=== PATIENT | female | born 1960 | race Caucasian/White ===

== ENCOUNTER → 2016-06-18 | Outpatient (CLI) | payer BC ==
--- NOTE | 2016-06-19 06:04 | PAP/PSG TECHNICIAN REPORT ---
[facility] [place] Polysomnogram Report Study name: None Report date: 06/19/2016 Study date: 06/18/2016 Referring Physician: Glenny GRULLON M.D. Name: ESA ANGELO Interpreting Physician: Lauren Grullon M.D. Date of : 1960 [place]: Annette Acosta RPSGT. Sex: Female Age: 56 Study Type: PSG PAP Weight: 173 lbs 16 in Height: 56 years, Height 4' 11" Neck Circum: BMI: 34.94 Medications: LOSARTAN 50 MG, VALTREX 500 MG, HYDROCHLOROTHIAZIDE 25 MG, SUMATRIPTAN 25 MG, MONTELUKAST 10 MG, OMNARIS 50 MCG/ACT, VIT B-12, VIT D3 1000 UNIT, BENADRYL 25 MG Patient History 56 yr-old female here for a CPAP treatment update study. She has been using CPAP since 2012. She wears it every night but recently was trying to switch to another nasal mask due to hers not fitting correctly. Tonight she is wearing a Mirage FX Soft edge nasal mask size standard from [facility]. Her Rogers scale is 2. The test was started on room air. ETCO2 testing was not utilized during this study. Room 1 Parameters Monitored NPSG: E1-M2, E2-M1, Fp1-M2, Fp2-M1, F3-M2, F4-M2, F4-M1, C3-M2, C4-M2, C4-M1, O1-M2, O2-M2, O2-M1, T3-M2, T4-M1, P3-M2, P4-M1, CHIN1, CHIN2, HR, EKG, Legs, PFLOW, SNOR, FLOW, CFLOW, Tidal Volume, THOR, ABDO, SpO2, PLTH, CPRESS, ETCO2 Wave, ETCO2, pH Sleep Architecture Sleep Stages Time at Lights Off 10:15:33 PM STAGES Time (min.) TST (%) Time at Lights On 5:18:03 AM Wake 31.0 -- Total Recording Time (TRT) 422.50 min. N1 26.0 7 Total Sleep Period (TSP) 408.5 min. N2 244.0 62 Total Sleep Time (TST) 391.5min. N3 21.0 5 Awake Time 31.0 min. REM 100.5 26 Wake after Sleep Onset 28.0 min. Sleep Efficiency (SE) 93 % Sleep Onset Latency (CHET) 3.0 min. Number of Stage 1 Shifts None Awakenings 15 Stage Changes 81 Number of REM periods 4 REM 100.5 26 REM Latency 75.5 min. NREM 291.0 74 Body Position Analysis Supine Right Left Side Prone Vertical Total Sleep Time (min.) 65.8 125.9 219.8 345.67 0.0 0.0 Total Sleep Time (%) 12% 32% 56% 88 0% N/A% Total Sleep Time REM (min.) 0.0 27.0 73.5 None 0.0 0.0 Total Sleep Time NREM (min.) 45.8 98.9 146.3 None 0.0 0.0 Intermittent Wake (min.) 20.0 7.7 3.3 None 0.0 0.0 Total Sleep Period (%) 13% None None None None None Arousals Myoclonus (PLM) * Events Count Index Events Count Index Spontaneous 11 2 Events Awake (PLMW) 46 89.0 Respiratory 10 1.5 Events Asleep w/ Arousal (PLMA) 20 3.1 PLM 20 3 Events Asleep w/o Arousal (PLMS) 283 43.4 Snoring 5 1 Total Asleep 303 46.4 Total 46 7 Total 349 50 Respiratory Analysis * CA OA MA CH H RERA Total Count 1 1 1 0 6 10 9 Index 0.2 0.2 0.2 0 0.9 2 2.9 Mean Duration 11.8 18.2 15.1 0.00 17.3 16.1 16.3 Longest Duration 11.8 18.2 15.1 0.00 15.1 18.3 21.3 Respiratory Event Summary Total Supine ~Supine Right Left Prone REM NREM Apneas Count 3 0 3 1 2 N/A 1 2 Index 0.5 0 1 0.5 0.5 N/A 1 0 Hypopneas (4% Desat) Count 6 1 5 4 1 N/A 0 6 Index 0.9 1.3 1 1.9 0.3 N/A 0.0 1.2 Apneas & All Hypopneas Count 9 1 8 5 3 N/A 1 8 Index 1.4 1 1 2 1 N/A 0.6 1.6 Respiratory Events (Care Asst+All Hyp+RERA) Count 9 3 16 5 11 N/A 1 8 Index 2.9 4 3 2.4 3.0 N/A 0.6 3.7 Respiratory Related Arousal Count 10 3 8 0 8 N/A 0 10 Index 1.5 3 1 0 2 N/A 0 2 Snoring Analysis Supine Right Left Prone REM NREM Total Snore duration 55.6 min Snores count 73 236 1,114 N/A 58 1,365 1,423 Snore mean duration 2.3 Sec Snores index 96 112 304 N/A 34.6 281.4 218.1 TST with snoring (%) 14.2% Desaturation Event Summary: Minimum %SpO2 Event Count Mean/Min/Max Duration(sec.) Desaturation Index % Time In Bed > 90 13 18.3 / 7.0 / 43.5 1.9 99.5 86 - 90 1 8.8 / 8.8 / 8.8 37.8 0.4 81 - 85 0 N/A 0.0 0.1 76 - 80 0 N/A 0.0 0.0 71 - 75 0 N/A 0.0 0.0 66 - 70 0 N/A 0.0 0.0 61 - 65 0 N/A 0.0 0.0 56 - 60 0 N/A 0.0 0.0 51 - 55 0 N/A 0.0 0.0 < 50 0 N/A 0.0 0.0 Total REM NREM Awake <50% 0.0 min. 0.0 min. 0.0 min. 0.0 min. 51 - 60% 0.0 min. 0.0 min. 0.0 min. 0.0 min. 61 - 70% 0.0 min. 0.0 min. 0.0 min. 0.0 min. 71 - 80% 0.0 min. 0.0 min. 0.0 min. 0.0 min. 81 - 90% 2.0 min. 1.3 min. 0.4 min. 0.2 min. 91 - 100% 410.9 min. 99.2 min. 290.6 min. 21.1 min. Average 93 94 93 94 Minimum SpO2 81 83 89 81 Desaturation Event Index 1.8 1.8 2.1 0.0 # Desat. Events below 89% 2 2 N/A N/A Time(%) with Saturation below 89% 0.2 0.1 0.0 0.0 Time(min.) with Saturation below 89% 0.7 0.5 0.0 0.2 Time (mins) REM (mins) NREM (mins) % of TST SpO2 Below 90% 5 2 N3 0.2 SpO2 Below 88% 1 0 0 0 Heart Rate Analysis Min (bpm) Max (bpm) Average (bpm) Awake 54 99 71 NREM 50 94 60 REM 53 80 67 Overall 50 94 62 Supplemental O2 Values Minimum O2 level: None Value Start Time End Time [place] Comments Ms. Angelo slept in the right, left, and supine positions. No cardiac arrhythmias were noted. PLMs were noted. No bruxism noted. CPAP was initiated at +4 CMH2O and up-titrated to a level of +8 CMH2O, Cflex 3 which nearly eliminated all respiratory events and snoring. A Mirage FX Soft edge nasal mask size standard from [facility] was used during titration She awoke to use the restroom once during the night. Ms. Angelo stated that she slept well. The final report will be interpreted and signed by a sleep physician. The completed physician report will then be placed in the patient medical record. Therapy Event: Therapy (cm H20) 4 5 6 7 8 Total Time at Pressure (min.) 28.3 98.9 100.7 146.5 48.2 TST at Pressure (min.) 25.3 96.2 98.8 140.0 31.2 # Periods 1 1 1 1 1 Sleep Onset (min.) 3.0 0.0 0.8 0.0 0.0 REM Onset (min.) N/A 50.2 55.3 60.7 N/A Sleep Efficiency % 89 97 98 95 64 Wakefulness (%) 10.6 2.7 1.8 4.4 35.3 Wakefulness (min.) 3.0 2.7 1.8 6.5 17.0 NREM 1 (%) 15.9 2.5 4.5 7.9 6.2 NREM 1 (min.) 4.5 2.5 4.5 11.5 3.0 NREM 2 (%) 73.5 51.3 66.9 52.5 58.5 NREM 2 (min.) 20.8 50.7 67.3 77.0 28.2 NREM 3 (%) 0.0 21.2 0.0 0.0 0.0 NREM 3 (min.) 0.0 21.0 0.0 0.0 0.0 REM (%) 0.0 22.2 26.8 35.2 0.0 REM (min.) 0.0 22.0 27.0 51.5 0.0 # Arousals 5 9 14 15 3 Arousal Index 11.9 5.6 8.5 6.4 5.8 # Snore 220 780 80 337 6 Snore Index 522.4 486.3 48.6 144.5 11.5 AHI 2.4 1.9 1.8 0.9 0.0 AHI Supine N/A N/A 0.0 4.3 0.0 AHI Non-Supine 2.4 1.9 2.2 0.5 0.0 NREM AHI 2.4 2.4 1.7 1.4 0.0 REM AHI N/A 0.0 2.2 0.0 N/A RDI 7.1 3.1 2.4 2.6 1.9 # Obstructive 0 0 0 1 0 # Central Ap 0 0 1 0 0 # Mixed 0 1 0 0 0 # Hypopneas 1 2 2 1 0 RERAS 2 2 1 4 1 Total Respiratory Events 3 5 4 6 1 Time Below SpO2 89.00% (min.) 0.0 0.0 0.5 0.0 0.0 Mean NREM SpO2 (%) 94 94 93 94 92 Mean REM SpO2 (%) N/A 95 93 94 N/A Mean Sleep SpO2 (%) 94 94 93 94 92 Min NREM SpO2 (%) 92 90 89 90 91 Min REM SpO2 (%) N/A 91 83 92 N/A Position Supine (min.) 0.0 0.0 16.1 14.0 15.7 Position Non-supine (min.) 25.3 96.2 82.7 125.9 15.5 LM Index Sleep 23.7 46.8 99.5 21.9 5.8 LM Index NREM 23.7 54.2 116.9 25.8 5.8 LM Index REM N/A 21.8 53.3 15.1 N/A Mean Heart Rate (bpm) 60 62 64 62 57 Min Heart Rate (bpm) 52 53 51 50 51
--- NOTE | 2016-06-23 14:22 | POLYSOMNOGRAPH REPORT ---
REFERRING PERSON: Dr. Júnior Grullon. PAYROLL AND BENEFITS SPECIALIST: Annette Acosta. Ms. Angelo is a 56-year-old female sent for a CPAP titration study. She has been using CPAP since 2013, but has had struggles with mask fit. She is sent to the sleep lab to help her with mask fit as well as determine her pressure needs in 2017. [place] sleepiness scale score on the evening of this study is 2. BMI is 34.94. She has chosen a Mirage FX standard nasal mask for her titration. Following the technical and digital specifications of the [employer] ([employer]) a standard diagnostic polysomnogram was performed monitoring EEG, EOG, EMG (chin and leg deviations), oxygen saturation, body position, digital video, respiratory effort and airflow. The sleep Stage and event scoring was based on the AASM Manual for the Scoring of Sleep and Associated Events 2007 edition. Apneas are defined as a drop in the peak thermal sensor excursion by >90% of baseline for at least 10 seconds. Hypopneas were scored using the 4% oxygen desaturation rule (4A-Medicare) and a decrease in the nasal pressure excursions by >30% of baseline for at least 10 seconds. Respiratory effort-related arousal (RERA's) is defined as a sequence of breaths lasting at least 10 seconds characterized by increasing respiratory effort or flattening of the nasal pressure waveform leading to an arousal from sleep when the sequence of breaths does not meet criteria for an apnea or hypopnea. Apnea Hypopnea index (AHI) is defined as the number of apneas and hypopneas occurring in an hour of sleep. Respiratory disturbance index (RDI) is defined as the number of apneas, hypopneas, and RERA's occurring in an hour of sleep. Ms. Angelo's total sleep period time was 408.5 minutes. Total sleep time was 391.5 minutes. Sleep efficiency was 93%. Latency to sleep onset was short at 3 minutes with wake after sleep onset of 28 minutes. Total non-REM sleep time was 291 minutes. She spent 7% of that time in N1 sleep, 62% in N2 sleep, and 5% in N3 sleep. REM latency was 75.5 minutes. Total REM sleep time was 100.5 minutes or 26% of total sleep time. There were 46 cortical arousals from sleep. Five of these arousals were due to snoring, 20 were due to periodic limb movements of sleep. Ten were due to respiratory events, and 11 were spontaneous. There were 303 periodic limb movements noted on this test. Limb movement index was 46.4. Limb movement with arousal index was 3.1. There was 1 central, 1 obstructive and 1 mixed apnea on this titration. There were 6 hypopneas and 10 RERA. Apnea-hypopnea index was 1.4. 1423 snoring events were recorded. Total sleep time with snoring was 14.2%. Mean saturation was 93% with desaturations to 81%. Saturations were less than 89% for 0.7 minutes of total sleep time. There was no cardiac ectopy noted on this study. Heart rates ranged from a low of 50 beats per minute to a high of 94 beats per minute during sleep. As stated above, this was a CPAP titration study. Ms. Angelo was titrated from a CPAP pressure of 4 to a CPAP pressure of 8 over the course of the night. Increasing pressures were needed to prevent apneas, hypopneas and arousals. She was observed on a pressure of 7 for 140 minutes of sleep time. 51.5 of those minutes was spent in REM sleep. However, no supine REM sleep was noted on this pressure. AHI and RDI on this pressure were 0.9 and 2.6 respectively. There were no desaturations less than 89% noted. IMPRESSION AND PLAN: Successful CPAP titration study in this patient with known obstructive sleep apnea. She appears to do well on the Mirage FX nasal mask in a standard size by [facility] on CPAP at 7. I would restart her CPAP device to these settings and check a download in 1 month.
== END ==
LOC: C.NEUR 21:00
PROVIDERS: ATTEND Family Medicine
DX: G47.33 Obstructive sleep apnea (adult) (pediatric) (principal)

== ENCOUNTER → 2017-10-21 | Outpatient (CLI) | payer BC ==
--- NOTE | 2017-10-21 12:29 | DIAGNOSTIC IMAGING REPORT ---
R VENOUS DOPP LOWER EXT UNILAT HISTORY: 57 years-old Female PAIN IN RIGHT LOWER LEG acute right leg pain COMPARISON: None available TECHNIQUE: Multiple real-time sonographic images of the right lower extremity deep venous structures were obtained assessing grayscale appearance, color and spectral flow FINDINGS: There is normal compressibility, flow, phasicity and augmentation of the right lower extremity deep venous structures. IMPRESSION: No sonographic evidence of deep venous thrombosis. The above report was generated using voice recognition software. It may contain grammatical, syntax or spelling errors. Electronically signed by: Kofi Perry M.D. 10/21/2017 12:28 PM Dictated Date/Time: 10/21/2017 12:25 PM
== END | disposition home or self-care (01) ==
LOC: C.ULTRBC 12:03
PROVIDERS: ATTEND Podiatrist Foot & Ankle Surgery
DX: M79.661 Pain in right lower leg (principal)